=== PATIENT | female | born 1995 | race Caucasian/White ===

== ENCOUNTER 2020-06-05 16:16 | Emergency (ER) | payer OTHER, SELFPAY ==
--- NOTE | 2020-06-05 16:22 | ED.GENADULT ---
HPI - General Adult General Chief complaint: Wound/Laceration Stated complaint: finger laceration Time Seen by Provider: 06/05/20 16:21 Source: patient Mode of arrival: ambulatory Limitations: no limitations History of Present Illness HPI narrative: 25-year-old female patient presents to the [facility] with complaints of a laceration to the left index finger. Patient states she cut it with a knife trying to get the tip of her thumb a tube of cough. Patient denies any numbness or tingling to the fingertip. Patient states she is right-hand dominant. Patient unsure when her last tetanus shot was. Related Data Home Medications Medication Instructions Recorded Confirmed No Home Medications 06/05/20 06/05/20 Allergies Allergy/AdvReac Type Severity Reaction Status Date / Time morphine AdvReac Unknown Verified 06/05/20 16:29 Review of Systems Review of Systems: Narrative: CONSTITUTIONAL: Denies fever, chills, or sweats. EYES: Denies visual changes, redness, or discharge. ENT: Denies rhinorrhea, congestion, sore throat, or otalgia. CARDIOVASCULAR: Denies chest pain, palpitations, or edema. RESPIRATORY: Denies cough or dyspnea. GASTROINTESTINAL: Denies abdominal pain, nausea, vomiting, or diarrhea. GENITOURINARY: Denies dysuria or hematuria. SKIN: Denies rash or itching. Positive laceration to left index finger MUSCULOSKELETAL: Denies back pain, joint pain, or myalgia. NEUROLOGIC: Denies headache, numbness, or weakness. PSYCHIATRIC: Denies anxiety or depression. PMFSH Comments At the time of my signature I agree with nursing past medical history, surgical, social, and family history. There is no relevant family history pertinent to the presenting complaint. Exam Narrative: Exam Narrative: GENERAL: Well-appearing, well-nourished, and in no acute distress. HEAD: Normocephalic, atraumatic. EYES: PERRLA and EOMI. ENT: Nares clear, no rhinorrhea or epistaxis. Mucous membranes moist. NECK: Supple. No lymphadenopathy CHEST: Clear to auscultation. No respiratory distress. HEART: Regular rate and rhythm. No murmur heard. Normal peripheral pulses. ABDOMEN: Soft, nontender, nondistended, normal active bowel sounds. EXTREMITIES: Normal range of motion. No edema. SKIN: Warm, dry, no rash. Patient has what appears to be a 2 cm flap noted to the left index finger on the lateral side of the PIP joint. Patient does have good range of motion to the finger in the joint. Good radial pulses present. Good sensation and cap refill present to the index finger. There is no active bleeding at this time. NEURO: No focal deficits. Alert and oriented x3. Course Vital Signs Vital signs: Vital Signs Temperature 36.9 C 06/05/20 16:28 Pulse Rate 114 H 06/05/20 16:28 Respiratory Rate 20 06/05/20 16:28 Blood Pressure 121/94 H 06/05/20 16:28 Pulse Oximetry 100 06/05/20 16:28 Temperature 36.9 C 06/05/20 16:31 Pulse Rate 114 H 06/05/20 16:31 Respiratory Rate 20 06/05/20 16:31 Blood Pressure 121/94 H 06/05/20 16:31 Pulse Oximetry 100 06/05/20 16:31 Vital signs reviewed Procedures Laceration Laceration 1: Date: 06/05/20 Time: 16:54 Site: hand (Index finger) Side (If applicable): left Size (cm): 2 Description: flap Depth: simple, single layer Local Anesthetic: none Pre-repair: wound explored and irrigated ====== Skin Level ====== Skin layer closed with: dermabond and steri strips ====== Subcutaneous Layer ====== ====== Muscle Layer ====== ====== Tendon Layer ====== Dressing: The Procedure was explained and verbal consent was obtained. Copious irrigation was done with saline and Shur-Clens and the wound was explored. There was no foreign body or deep structure injury noted. Patient had good range of motion. Wound edges were approximated with good alignment using Dermabond and Steri-Strips. There were [address]
[2020-06-05 16:28] VITALS: BP 121/94; PULSE 114; RESP 20; TEMP 36.9; O2SAT 100
[2020-06-05 16:31] VITALS: BP 121/94; PULSE 114; RESP 20; TEMP 36.9; O2SAT 100
[2020-06-05] MEDS: TETANUS,DIPHTHERIA,AC PERTUSSIS ADULT (0.5 ML) BOOSTRIX IM (16:42)
== END 2020-06-05 17:03 | disposition home or self-care (01) ==
PROVIDERS: Emergency Provider Nurse Practitioner Family
DX: S61.211A Laceration without foreign body of left index finger without damage to nail, initial encounter (principal); W26.0XXA Contact with knife, initial encounter; Z23 Encounter for immunization
CPT/HCPCS: 12001; 90471; 90715; 99213; G0463